=== PATIENT | female | born 1965 | race Caucasian/White ===

== ENCOUNTER → 2018-01-12 | Outpatient (CLI) | payer BC ==
[~2018-01-12] MED LIST: ASPIR 8181 M1 PO; ATORVASTATIN CA40 MG PO; CARTIA XT120 M1 PO; CEFPODOXIME PR200 M1 PO; CIPROFLOXACIN500 M1 PO; DILTIAZEM 24HR120 M1 PO; EFFIENT10 MG PO; FLAGYL500 MG PO; LANOXIN 0.120.125 M1 PO; NITROGLYCERIN0.4 MG SUBLING; NOHOMEMEDICATIONS; NORCO 5-325 TA1 EACH PO; PACERONE 200 M200 M1 PO; PREDNISONE10 MG PO; PROAIR HFA8.5 GM INH; TOPROL XL50 MG PO; VICODIN 5-5001 EACH PO
--- NOTE | 2018-01-19 11:16 | PF ---
[facility] [address] [place] [address] PULMONARY FUNCTION REPORT Name: PRAVEENAHARRY Melissa Room: [facility]#: [id number] Admission: 01/12/18 Attend Phys: Hermelindo Ross MD, F Discharge: Date of : 65 Report #: [id number] THIS REPORT FOR: //name// CC: Hermelindo Mcclellan [facility] REFERRING PHYSICIAN: Hermelindo Ross M.D., [facility]. SPIROMETRY: The FEV1/FVC ratio was 64% predicted. The FEV1 was 2.31 liters, at 90% predicted. The forced vital capacity was 3.63 liters, at 112% predicted. Total lung capacity was 117% predicted. The residual volume was 84% predicted. DLCO was 52% predicted. IMPRESSION: The above pulmonary function test demonstrates evidence of mild obstructive pulmonary defect with mild decrease in DLCO . <ELECTRONICALLY SIGNED> By: Pauly Elizabeth MD 01/19/18 1116 1146 [id number] Elizabeth MD /nt
== END ==
LOC: M.PUL 11:00
DX: I48.0 Paroxysmal atrial fibrillation (principal); Z72.0 Tobacco use

== ENCOUNTER 2019-11-24 23:27 | Inpatient (IN) | payer BC ==
[~2019-11-24] VITALS: Ht 157.5 cm; Wt 103.0 kg
[~2019-11-24 23:27] MED LIST changes: -ATORVASTATIN CA40 MG PO; +LIPITOR 40 MG T40 M1 PO
[2019-11-24 23:35] VITALS: BP 130/77
[2019-11-25] VITALS (13 sets, daily range): BP systolic 83–121; BP diastolic 54–70
[2019-11-25 00:23] LABS: ABSOLUTE BASOPHILS 0.1 thou/uL (0.0-0.2); ABSOLUTE EOSINOPHILS 0.2 thou/uL (0.0-0.7); ABSOLUTE LYMPHOCYTES 2.8 thou/uL (0.8-5.3); ABSOLUTE MONOCYTES 0.9 thou/uL (0.0-1.2); ABSOLUTE NEUTROPHILS 12.3 thou/uL (1.6-8.1); BASOPHILS 0.5 %; EOSINOPHILS 1.2 %; HEMATOCRIT 29.5 % (37.0-47.0); HEMOGLOBIN 9.7 gm/dL (12.0-15.0); LYMPHOCYTES 17.4 %; MCH 26.4 pg (26.0-34.0); MCHC 32.9 g/dL (28.0-37.0); MCV 80.2 fL (80.0-100.0); MONOCYTES 5.3 %; MPV 8.4 fl. (7.2-11.1); NUCLEATED RBCS 0 /100WBC; PLATELET COUNT* 350 thou/uL (150-400); POLYS 75.6 %; RBC 3.68 mil/uL (4.20-5.00); WBC 16.2 thou/uL (4.0-11.0)
[2019-11-25 00:30] LABS: CALCIUM 8.3 mg/dL (8.5-10.1); CREATININE 1.3 mg/dL (0.6-1.3); POTASSIUM 3.7 mmol/L (3.5-5.1)
[2019-11-25 00:33] LABS: INR 1.2; PROTIME 12.6 Seconds (9.20-11.50)
[2019-11-25 00:34] LABS: ALBUMIN 3.5 g/dL (3.4-5.0); MAGNESIUM 1.8 mg/dL (1.8-2.4); TOTAL BILIRUBIN 0.6 mg/dL (<0.1-1.0); TOTAL PROTEIN 6.9 g/dL (6.4-8.2)
[2019-11-25 01:08] LABS: INFLUENZA A ANTIGEN Negative (Negative); INFLUENZA B ANTIGEN Negative (Negative)
[2019-11-25 08:21] LABS: URINE BILIRUBIN NEGATIVE (Negative); URINE BLOOD TRACE (Negative); URINE CLARITY CLEAR; URINE COLOR YELLOW; URINE GLUCOSE-RANDOM NEGATIVE (Negative); URINE KETONES NEGATIVE (Negative); URINE LEUKOCYTES-REFLEX NEGATIVE (Negative); URINE PROTEIN NEGATIVE (Negative); URINE UROBILINOGEN 0.2 E.U./dl (0.2-1.0)
[2019-11-25 08:25] LABS: URINE NITRITE-REFLEX POSITIVE (Negative)
[2019-11-25 09:03] LABS: CASTS None Seen /LPF (None Seen); MUCUS None Seen strn/LPF (None Seen); SQUAMOUS 0-3 Few /LPF (0-3); URINE RBC 0-2 Rare /HPF (0-2); URINE WBC-REFLEX 0-5 Rare /HPF (0-5)
[2019-11-25 09:04] LABS: CRYSTALS None Seen /LPF (None Seen)
[2019-11-25] MEDS ORDERED: XARELTO20 MG PO (18:25)
[2019-11-25] MEDS ORDERED: AMIODARONE HCL400 MG PO (18:25)
[2019-11-25] MEDS ORDERED: COZAAR 25 MG TA25 M1 PO (18:26)
[2019-11-25] MEDS ORDERED: LEVO-T100 MCG PO (18:26)
--- NOTE | 2019-11-25 18:59 | NUR ---
1500 PATIENT ARRIVED TO ROOM 204 VIA BED FROM ER, REPORT REC'D FROM OBED/RN. PT IN RESP DISTRESS AND RESP AT BEDSIDE ADMINISTERING DUONEB BREATHING TX. AFIB IN 100-130'S, RESP 24-28, WHEEZES AND RALES NOTED BILATERALLY. ON CARDIZEM GTT AT 5MG HOUR WITH BP RUNNING 90-100 OVER 50-60. RT APPLIED BIPAP AFTER BREATHING TREATMENT AND PT RESTING QUIETLY.
[2019-11-26] VITALS (8 sets, daily range): BP systolic 105–117; BP diastolic 46–84
--- NOTE | 2019-11-26 04:26 | NUR ---
PT ALERT ORIENTED. ON 100% NRB. PT REQUESTED TO BE ON NRB AND NOT BIPAP. PT WENT BACK ON BIPAP AT 0300 O2 SAT PRIOR 90% SETTINGS FIO2 45% 10/5 RR 14 O2 SAT 93% TELEMETRY INITALLY SHOWED AFIB. ON CARDIZEM QTT AT 5MG/HR. PT CONVERTED TO SR AT 0028 RATE 70S. PT CONTINUES IN SR. WCTM
[2019-11-26 05:15] LABS: HEMATOCRIT 29.2 % (37.0-47.0); HEMOGLOBIN 9.3 gm/dL (12.0-15.0); MCH 25.8 pg (26.0-34.0); MCHC 31.7 g/dL (28.0-37.0); MCV 81.3 fL (80.0-100.0); MPV 8.8 fl. (7.2-11.1); NUCLEATED RBCS 0 /100WBC; PLATELET COUNT* 327 thou/uL (150-400); RBC 3.59 mil/uL (4.20-5.00); RDW-CV 18.7 % (10.5-14.5); WBC 19.6 thou/uL (4.0-11.0)
[2019-11-26 05:22] LABS: CALCIUM 7.7 mg/dL (8.5-10.1); CREATININE 1.2 mg/dL (0.6-1.3); POTASSIUM 4.2 mmol/L (3.5-5.1)
[2019-11-26 06:39] LABS: ABSOLUTE LYMPHOCYTES 1.4 thou/uL (0.8-5.3); ABSOLUTE MONOCYTES 0.2 thou/uL (0.0-1.2)
[2019-11-26 06:40] LABS: MICROCYTES 3+; PLATELET ESTIMATE ADEQUATE
[2019-11-26 06:41] LABS: HYPOCHROMASIA 2+
[2019-11-26 06:42] LABS: BURR CELLS 1+
--- NOTE | 2019-11-26 06:55 | NUR ---
PT CONTINUES ON BIPAP.
--- NOTE | 2019-11-26 08:30 | NUR ---
ASSUMED CARE OF PT AT 0730. PT RESTING IN BED ON BIPAP-SAT UPPER 90'S. PT PLACED ON 5L NC FOR BREAKFAST- RESPIRATORY RATE NOTED TO BE IN THE 30'S- PT PLACED BACK ON BIPAP. TOLERATING WELL. TRACING SR ON THE AIRPORT ATTENDANT. DR RAMIREZ HERE TO SEE PT- AMIO INCREASED TO 400MG PO BID. REFER TO EMAR. A&0X4, DENIES ANY PAIN AT THIS TIME. PT UP WITH SBA TO BATHROOM. PT GOAL FOR TODAY IS REMAIN IN SINUS RHYTHM AND TITRATE OXYGEN. PULMONARY AND CARDIOLOGY CONSULT IN PLACE. AM ASSESSMENT CHARTED. MEDICATIONS PER DEC. PT REPOSITIONS SELF. HOURLY ROUNDING OBSERVED. BED IN LOW POSITION. CALL LIGHT WITHIN REACH. WILL CONTINUE PLAN OF CARE.
--- NOTE | 2019-11-26 13:19 | CON ---
[address] [address] CONSULTATION Name: PRAVEENA,HARRY Melissa Room: [address] IN .R.#: [id number] Admission: 11/25/19 Attend Phys: Gonzales Conrad Discharge: Date of : 65 Report #: [id number] THIS REPORT FOR: //name// cc: Omero Carreon MD, Jason MD ~ THIS REPORT FOR: //name// CC: Oemro Dooley DATE OF SERVICE: 11/25/2019 CARDIOLOGY CONSULTATION HISTORY OF PRESENT ILLNESS: The patient is a 54-year-old single white female who came to the Emergency Room complaining of shortness of breath. The patient has an extensive past medical history. She has been a long time smoker. She actually presented back in 2014 with chest pain. I performed a cardiac catheterization. The right coronary artery was chronically occluded. The diagonal branch had a 90% stenosis. I performed angioplasty of the diagonal artery and she had a retrograde dissection into the LAD. She had occlusion of the LAD and developed ventricular fibrillation. She was cardioverted. I then stented the LAD. I was unable to place a wire through the stent in the diagonal branch which was occluded. There was no significant disease in the circumflex or right coronary artery. Her last echocardiogram showed an ejection fraction of 45%. Nuclear stress test in 2017 showed evidence of previous anterior infarction with minimal periinfarct ischemia, ejection fraction 44%. She was last seen by me in the Cardiology Clinic a year ago. She saw my nurse practitioner last summer. During her stenting, she had an episode of atrial fibrillation and was placed on amiodarone and Xarelto. Unfortunately, recently she continues to smoke. She does have inhaler, which she uses occasionally. She recently has had increasing shortness of breath and some edema. She denied any palpitations, chest pain, syncope or bleeding. She came to the Emergency Room today and was noted to be in atrial fibrillation. Cardiology consultation was requested. PAST MEDICAL HISTORY: Otherwise is significant for previous carpal tunnel surgery, foot surgery, hysterectomy and tonsillectomy. She has a history of hypertension, hyperlipidemia. MEDICATIONS: Include amiodarone, Lipitor, Synthroid, losartan, metoprolol, Xarelto. She does not take aspirin at this time. ALLERGIES: She [place] [address] CONSULTATION Name: HARRY GRISSOM Room: [address]#: [id number] Admission: 11/25/19 Attend Phys: Gonzales Conrad Discharge: Date of : 65 Report #: [id number] FAMILY HISTORY: Actually, negative for heart disease. SOCIAL HISTORY: She is single, lives with her mother in [place], [place]. She does data entry coordinator at work. Smokes half pack of cigarettes. No alcohol abuse. REVIEW OF SYSTEMS: She has no history of stroke. She has COPD. No history of liver disease, kidney disease, cancer, psychiatric illness or chronic skin condition. PHYSICAL EXAMINATION: GENERAL: Revealed a middle-aged female, appeared in mild respiratory distress. VITAL SIGNS: Her blood pressure 110/70, pulse is 100 and irregular. She is afebrile. HEENT: She was anicteric. Conjunctivae pink. Mucous membranes moist. NECK: Veins do not appear distended. No carotid bruits. CHEST: Revealed expiratory wheezes. CARDIOVASCULAR: Irregular rhythm. ABDOMEN: Obese. EXTREMITIES: Had trace edema. Dorsalis pedis pulse 2+ bilaterally. SKIN: Warm and dry. NEUROLOGIC: Nonfocal. RADIOLOGICAL DATA: Her ECG on admission showed atrial fibrillation, rapid ventricular response rate, no significant ST or T-wave change. Her echocardiogram was done last April that showed ejection fraction of 50% with mild mitral regurgitation. Her vascular screening was done last April that showed minimal carotid plaque, normal ABIs. Abdominal ultrasound was not performed. Her x-rays last night in the Emergency Room showed diffuse infiltrates. LABORATORY DATA: Sodium 136, creatinine 1.3. Liver function studies were normal. BNP 2272. Troponin 0.06. She had TSH last summer that was 3.3. Her white blood cell count was 16.2, hemoglobin 9.7, hematocrit 29.5. IMPRESSION AND RECOMMENDATIONS: 1. Coronary artery disease. Previous stent. No recent angina. Since the patient is on Xarelto, I would not recommend aspirin at this time. 2. Cardiomyopathy. The patient on a beta marlo and ARB. 3. Hyperlipidemia. The patient is on a statin drug. 4. Hypertension. The patient is on a beta marlo and ARB. 5. Atrial fibrillation. I would increase amiodarone and continue Xarelto. The patient may require repeat cardioversion. 6. Tobacco abuse. [address] [address] CONSULTATION Name: HARRY GRISSOM Room: [address] IN [place]ish[place]arya.#: [id number] Admission: 11/25/19 Attend Phys: Gonzales Conrad Discharge: Date of : 65 Report #: [id number] 7. History of small abdominal aortic aneurysm. 8. Anemia. No history of bleeding. <ELECTRONICALLY SIGNED> By: Hermelindo Ross MD, FACC 11/26/19 1319 1006 1131Dgigi Ross MD, FACC /nt
[2019-11-27] VITALS: BP 118/52
--- NOTE | 2019-11-27 02:46 | NUR ---
PT ALERT ORIENTED. UP TO BR WITH STD BY ASSIST. ON 5 LITERS NC THEN BIPAP AT HS. PT TOLERATING WELL. DENIES PAIN. TELEMETRY SHOWS AFIB.
[2019-11-27 03:59] VITALS: BP 130/72
[2019-11-27 04:55] LABS: CHOLESTEROL 122 mg/dL (<200); HDL CHOLESTEROL 41 mg/dL (>40); LDL CHOLESTEROL 71 mg/dL (<100); TRIGLYCERIDE 51 mg/dL (<150); VLDL 10 mg/dL (<40)
[2019-11-27 05:40] LABS: SERUM ASSESSMENT CLEAR
[2019-11-27 07:47] VITALS: BP 112/67
--- NOTE | 2019-11-27 09:46 | NUR ---
ASSUMED CARE OF PT AT 0730. PT RESTING IN BED. PT STATES SHE FEELS MUCH BETTER TODAY. A&0X4, DENIES ANY PAIN AT THIS TIME. COMPLAINS OF SHORTNESS OF BREATH WITH EXERTION. TRACING AFIB ON THE QUICK SERVICE TECHNICIAN. RATE IN THE 80'S-90'S. ON 5L NC SAT 96%. DR RAMIREZ HERE TO SEE PT THIS AM- ORDERS RECEIVED FOR AMIO BOLUS, CARDIZEM INCREASED TO 60MG PO Q6H, EKG IN AM AND ECHO IN AM. PT UP SBA TO BATHROOM. PULMONARY CONSULT IN PLACE. PT GOAL FOR TODAY IS INCREASE ACTIVITY-AMBULATE IN HALLWAY, CONVERT TO SINUS RHYTHM AND TITRATE OXYGEN. AM ASSESSMENT CHARTED. MEDICATIONS PER DEC. PT REPOSITIONS SELF. HOURLY ROUNDING OBSERVED. BED IN LOW POSITION. CALL LIGHT WITHIN REACH. WILL CONTINUE PLAN OF CARE.
[2019-11-27 11:15] VITALS: BP 118/70
[2019-11-27 16:01] VITALS: BP 107/64
--- NOTE | 2019-11-27 17:02 | NUR ---
NO ACUTE CHANGES THROUGHOUT SHIFT. REFER TO CHARTING. PT PROGRESSING TOWARDS GOALS. REMAINED OFF BIPAP THROUGHOUT SHIFT. REMAINED ON 5L NC SAT UPPER 90'S. PT AMBULATED TO BATHROOM AND IN ROOM WITH NO DIFFICULTIES. CONTINUES TO TRACE AFIB ON THE VICE PRESIDENT DIVERSITY. RATE CURRENTLY IN THE 80'S-90'S. SPUTUM SAMPLE NEEDS TO BE OBTAINED. PT HAD REPEAT CXR TODAY. REFER TO RESULTS. PT DENIES ANY PAIN OR SHORTNESS OF BREATH THIS AFTERNOON. MEDICATIONS PER DEC. PT REPOSITIONS SELF. HOURLY ROUNDING OBSERVED. BED IN LOW POSITION. CALL LIGHT WITHIN REACH. WILL CONTINUE PLAN OF CARE.
[2019-11-27 20:00] VITALS: BP 106/60
[2019-11-28 00:53] VITALS: BP 118/62
[2019-11-28 04:16] VITALS: BP 126/74
--- NOTE | 2019-11-28 05:18 | NUR ---
PT CARE ASSUMED AT 1930. SAT MAINTAINED IN BIPAP. ALERT AND ORIENTED X4. DENIES PAIN AND SOB. CALL LIGHT WITHIN REACH AND BED IN LOW POSITION. HOURLY ROUNDING DONE FOR PT SAFETY.
[2019-11-28 05:57] LABS: ABSOLUTE LYMPHOCYTES 1.1 thou/uL (0.8-5.3); ABSOLUTE MONOCYTES 0.6 thou/uL (0.0-1.2); HEMATOCRIT 28.5 % (37.0-47.0); HEMOGLOBIN 9.2 gm/dL (12.0-15.0); LYMPHOCYTES 5.5 %; MCH 25.8 pg (26.0-34.0); MCHC 32.1 g/dL (28.0-37.0); MCV 80.4 fL (80.0-100.0); MONOCYTES 2.7 %; MPV 8.8 fl. (7.2-11.1); NUCLEATED RBCS 0 /100WBC; PLATELET COUNT* 339 thou/uL (150-400); POLYS 91.8 %; RBC 3.54 mil/uL (4.20-5.00); RDW-CV 18.6 % (10.5-14.5); WBC 20.7 thou/uL (4.0-11.0)
[2019-11-28 06:10] LABS: ALBUMIN 2.9 g/dL (3.4-5.0); CREATININE 1.1 mg/dL (0.6-1.3); POTASSIUM 3.8 mmol/L (3.5-5.1); TOTAL BILIRUBIN 0.5 mg/dL (<0.1-1.0); TOTAL PROTEIN 6.1 g/dL (6.4-8.2)
[2019-11-28 08:30] VITALS: BP 117/65
[2019-11-28 11:00] VITALS: BP 106/57
--- NOTE | 2019-11-28 12:39 | NUR ---
Pt is A&O. Resides at home with her mom and brother. Independent and active. No DME, Pt is hopeful that she will not need O2 at dc. No hx of HH or SNF. Goal is home at dc. Spoke with Dr aprker dc to home in 1-2 days. Following.
--- NOTE | 2019-11-28 13:00 | 2DMMODE ---
[place] [address] 2 D/M-MODE ECHOCARDIOGRAM Name: HARRY GRISSOM Room: [address] IN [facility]#: [id number] Admission: 11/25/19 Attend Phys: Stanford Dooley Discharge: Date of : 65 Date of Service: 11/28/19 1259 Report #: [id number] THIS REPORT FOR: cc: Omero Carreon MD, Jason MD Holkins,Octaviano Woodson MD [facility] ~ APPROVED REPORT Study performed: 11/28/2019 09:55:53 EXAM: Comprehensive 2D, Doppler, and color-flow Echocardiogram Patient Location: In-Patient Room #: [facility] Status: routine BSA: 2.00 HR: 83 bpm BP: 117/65 mmHg Rhythm: NSR Other Information Study Quality: Good Indications COPD Dyspnea 2D Dimensions IVSd: 10.40 (7-11mm) LVOT Diam: 20.25 (18-24mm) LVDd: 59.74 mm PWd: 10.20 (7-11mm) Ascending Ao: 33.84 (22-36mm) LVDs: 38.38 (25-40mm) Aortic Root: 34.24 mm Volumes Left Atrial Volume (Systole) LA ESV Index: 43.80 mL/m2 Aortic Valve AoV Peak Amando.: 1.75 m/s AO Peak Gr.: 12.18 mmHg LVOT Max P.10 mmHg AO Mean Gr.: 6.15 mmHg LVOT Mean P.44 mmHg LVOT Max V: 1.33 m/s AO V2 VTI: 29.06 cm LVOT Mean V: 0.85 m/s MAR (VTI): 2.95 cm2 LVOT V1 VTI: 26.59 [place] [address] 2 D/M-MODE ECHOCARDIOGRAM Name: HARRY GRISSOM Room: [address] IN [facility]#: [id number] Admission: 11/25/19 Attend Phys: Stanford Dooley Discharge: Date of : 65 Date of Service: 11/28/19 1259 Report #: [id number] Mitral Valve MV Decel. Time: 259.10 ms MV PHT: 75.14 ms MVA (PHT): 2.93 cm2 TDI Medial E' Amando.: 0.15 m/s Lateral E' Amando.: 0.16 m/s Pulmonary Valve PV Peak Amando.: 1.08 m/s PV Peak Gr.: 4.68 mmHg Tricuspid Valve RAP Estimate: 5.00 mmHg TR Peak Gr.: 41.90 mmHg RVSP: 46.00 mmHg PA Pressure: 46.00 mmHg Left Ventricle The left ventricle is normal size. There is normal LV segmental wall motion. There is normal left ventricular wall thickness. Left ventricular systolic function is normal. The left ventricular ejection fraction is within the normal range. LVEF is 55-60%. This study is not technically sufficient to allow evaluation of the LV diastolic function due to atrial fibrillation. Right Ventricle The right ventricle is normal size. The right ventricular systolic function is normal. Atria Left atrium is moderately dilated. The right atrium size is normal. Aortic Valve The aortic valve is normal in structure. No aortic regurgitation is present. There is no aortic valvular stenosis. Mitral Valve The mitral valve is normal in structure. Moderate mitral regurgitation. No evidence of mitral valve stenosis. Tricuspid Valve The tricuspid valve is normal in structure. Mild tricuspid regurgitation. Moderate [place] [address] 2 D/M-MODE ECHOCARDIOGRAM Name: PRAVEENAHARRY L Room: [address] IN [facility]#: [id number] Admission: 11/25/19 Attend Phys: Stanford Dooley Discharge: Date of : 65 Date of Service: 11/28/19 1259 Report #: [id number] Pulmonic Valve The pulmonary valve is normal in structure. Trace pulmonic regurgitation. Great Vessels The aortic root is normal in size. IVC is normal in size and collapses >50% with inspiration. Pericardium There is no pericardial effusion. <Conclusion> The left ventricle is normal size. There is normal left ventricular wall thickness. Left ventricular systolic function is normal. The left ventricular ejection fraction is within the normal range. LVEF is 55-60%. This study is not technically sufficient to allow evaluation of the LV diastolic function due to atrial fibrillation. The right ventricle is normal size. Left atrium is moderately dilated. The right atrium size is normal. The aortic valve is normal in structure. The mitral valve is normal in structure. Moderate mitral regurgitation. No evidence of mitral valve stenosis. The tricuspid valve is normal in structure. Mild tricuspid regurgitation. Moderate pulmonary hypertension. IVC is normal in size and collapses >50% with inspiration. There is no pericardial effusion. There is normal LV segmental wall motion. <ELECTRONICALLY SIGNED> By: Octaviano Miguel MD, FACC 11/28/19 1259 1259 1259 Octaviano Miguel MD, FACC /INF
--- NOTE | 2019-11-28 14:29 | NUR ---
Nutrition: Pt admitted with COPD exac. Seen for high BMI. H/o COPD, DM, smoking, bipap. 2gm Na diet. Wt stable, 227#. Albumin 2.9. Pt was busy with RN and family at time of attempted visit today. Hopeful for good po intake, tight BG control. Otherwise, low nutrition risk.
[2019-11-28 16:09] VITALS: BP 113/45
--- NOTE | 2019-11-28 16:38 | NUR ---
ALERT AND ORIENTED X4. UP AD SHANNON IN ROOM WITH O2 AT 5L/NC AT ALL TIMES TO KEEP O2 SATS IN 90'S. CONTINUES TO RECEIVE IV ANTIBIODICS WITHOUT DIFFICULTY OR SIDE EFFECTS. CONTINUES TO RECEIVE SOLUMEDROL AND BREATHING TREATMENTS. REMAINS ON HEART MONITOR IN A-FIB. NO C/O ANY PAIN. USES CALL LIGHT NEEDED.
[2019-11-28 20:00] VITALS: BP 110/61
[2019-11-29 00:42] VITALS: BP 107/77
[2019-11-29 04:45] VITALS: BP 120/73
--- NOTE | 2019-11-29 07:38 | NUR ---
PT CARE ASSUMED AT 1930. SAT MAINTAINED IN BIPAP AND O2. C/O PAIN, MEDICATION GIVEN PER EMAR. CALL LIGHT WITHIN REACH AND BED IN LOW POSITION. ALERT AND ORIENTED X4. HOURLY ROUNDING DONE FOR PT SAFETY.
[2019-11-29 09:15] VITALS: BP 114/60
[2019-11-29 13:02] VITALS: BP 118/61
--- NOTE | 2019-11-29 13:43 | NUR ---
CHF Discharge Medication Education: Patient was provided a medication education handout. The only medication at this time patient is taking is metoprolol. Discussed how to take, side effects, and how it works. All questions and concerns were addressed.
--- NOTE | 2019-11-29 16:20 | NUR ---
I have reviewed the documentation by COREY SANTIAGO from 11/29/19 to 11/29/19 and I concur with it. MATHEW ESTES
[2019-11-29 16:25] VITALS: BP 107/54
--- NOTE | 2019-11-29 18:17 | NUR ---
I ASSUMED CARE OF THE PATIENT AT 0700. SHE IS ALERT AND ORIENTED X4 AND IS UP AD SHANNON. SHE IS A.FIB ON THE MONITOR, BUT ASYMPTOMATIC. BED IS IN THE LOW LOCKED POSITION AND CALL LIGHT IS IN REACH. HOURLY ROUNDING IS COMPLETE AND PTIENT NEEDS ARE MET. PAIN IS DENIED. SHE WAS A SMOKER ON ARRIVAL, BUT STATES SHE DOESN'T WANT A NICOTINE PATCH. OXYGEN IS BEING TITRATED DOWN TOLERATED. SPUTUM WAS COLLECTED AND SENT TO LAB. SHE IS PROGRESSING TOWARD HER GOALS. I HAD STUDENT, JORI, AND AGREE WITH HIS CHARTED ASSESSMENT. WILL CONTINUE TO MONITOR.
[2019-11-29 20:00] VITALS: BP 112/64
[2019-11-30 00:44] VITALS: BP 134/67
[2019-11-30 04:26] VITALS: BP 133/81
[2019-11-30 04:41] LABS: HEMATOCRIT 30.2 % (37.0-47.0); HEMOGLOBIN 9.8 gm/dL (12.0-15.0); MCH 25.8 pg (26.0-34.0); MCHC 32.4 g/dL (28.0-37.0); MCV 79.6 fL (80.0-100.0); MPV 8.3 fl. (7.2-11.1); NUCLEATED RBCS 0 /100WBC; PLATELET COUNT* 375 thou/uL (150-400); RBC 3.79 mil/uL (4.20-5.00); RDW-CV 18.5 % (10.5-14.5); WBC 22.1 thou/uL (4.0-11.0)
--- NOTE | 2019-11-30 04:55 | NUR ---
PT CARE ASSUMED AT 1930. SAT MAINTAINED IN O2 AND BIPAP. DENIES PAIN AND SOB. ALERT AND ORIENTED X4. CALL LIGHT WITHIN REACH AND BED IN LOW POSITION. HOURLY ROUNDING DONE FOR PT SAFETY.
[2019-11-30 05:12] LABS: CALCIUM 7.7 mg/dL (8.5-10.1); CREATININE 1.2 mg/dL (0.6-1.3); POTASSIUM 3.6 mmol/L (3.5-5.1)
[2019-11-30 05:43] LABS: HEMATOCRIT 30.5 % (37.0-47.0); HEMOGLOBIN 9.8 gm/dL (12.0-15.0); MCH 25.7 pg (26.0-34.0); MCHC 32.2 g/dL (28.0-37.0); MCV 79.6 fL (80.0-100.0); MPV 8.5 fl. (7.2-11.1); RBC 3.83 mil/uL (4.20-5.00); RDW-CV 18.5 % (10.5-14.5)
[2019-11-30 07:17] LABS: ABSOLUTE LYMPHOCYTES 2.4 thou/uL (0.8-5.3); ABSOLUTE MONOCYTES 0.2 thou/uL (0.0-1.2); ABSOLUTE NEUTROPHILS 19.4 thou/uL (1.6-8.1); ANISOCYTOSIS 1+; PLATELET ESTIMATE ADEQUATE
--- NOTE | 2019-11-30 08:00 | NUR ---
AM ASSESSEMENT COMPLETE, DEFER TO COMPUTER CHARTING. CHIEF PAYROLL CLERK TRACKING AFIB. 02 ON 4L PER NC, LUNGS DIMINISHED WITH CRACKLES - SOA NOTED WITH ACTIVITY. 2+ EDEMA NOTED IN BILATERAL LOWER EXTREMITIES. DENIES PAIN, DIZZINESS AT THIS TIME. UP IN CHAIR, CALL LIGHT WITHIN REACH. FLOOR WORKER TRANSFER BAY ALSO INVOLVED WITH PATIENT CARE. WILL CONTINUE TO MONITOR.
[2019-11-30 09:35] VITALS: BP 109/64
--- NOTE | 2019-11-30 10:43 | NUR ---
Anticipate dc soon, Pt hopeful that she will not need home o2, continues to require 4L at this time.
[2019-11-30 11:10] VITALS: BP 109/56
--- NOTE | 2019-11-30 13:44 | EKG ---
[place] [address] ELECTROCARDIOGRAM REPORT Name: HARRY GRISSOM Room: [address] ADM IN .R.#: [id number] Admission: 11/25/19 Attend Phys: Stanford Dooley Discharge: Date of : 65 Date of Service: 11/26/19 1041 Report #: [id number] THIS REPORT FOR: cc: Omero Carreon MD, Jason MD Holkins,Octaviano Woodson MD [facility] ~ THIS REPORT FOR: //name// [facility] Test Date: 2019-11-26 Test Time: 10:41:56 Pat Name: HARRY GRISSOM Department: Room: [address] Gender: F Pipe Smoking Machine Operator: CHAVA : 1965 Requested By: Hermelindo Ross Order Number: [id number] Jarvis MD: Octaviano Miguel Measurements Intervals [place] Rate: 115 P: [place]: QRS: 50 QRSD: 98 T: 48 QT: 355 QTc: 491 Interpretive Statements Atrial fibrillation Borderline prolonged QT interval Compared to ECG 11/24/2019 23:42:52 T-wave abnormality no longer present ST (T wave) deviation no longer present Electronically Signed On 11-28-2019 15:57:35 STRIP MILL OPERATOR by Octaviano Miguel [email or web address] <ELECTRONICALLY SIGNED> By: Octaviano Miguel MD, [facility] 11/28/19 1557 1041 1041 Octaviano Miguel MD, [facility] /EPI
--- NOTE | 2019-11-30 13:45 | EKG ---
[place] [address] ELECTROCARDIOGRAM REPORT Name: HARRY GRISSOM Room: [address] ADM IN M.R.#: [id number] Admission: 11/25/19 Attend Phys: Stanford Dooley Discharge: Date of : 65 Date of Service: 11/28/19 0943 Report #: [id number] THIS REPORT FOR: cc: Omero Carreon MD, Jason MD Holkins,Octaviano Woodson MD [facility] ~ THIS REPORT FOR: //name// [facility] Test Date: 2019-11-28 Test Time: 09:43:48 Pat Name: HARRY GRISSOM Department: Room: [address] Gender: F Tennis Net Maker: : 1965 Requested By: Hermelindo Ross Order Number: [id number] Jarvis MD: Octaviano Miguel Measurements Intervals [place] Rate: 74 P: [place]: QRS: 37 QRSD: 102 T: 17 QT: 443 QTc: 492 Interpretive Statements Atrial fibrillation Borderline prolonged QT interval Compared to ECG 11/24/2019 23:42:52 T-wave abnormality no longer present ST (T wave) deviation no longer present Electronically Signed On 11-28-2019 16:13:32 LEAD SHOP OPERATOR by Octaviano Miguel [email or web address] <ELECTRONICALLY SIGNED> By: Octaviano Miguel MD, [facility] 11/28/19 1613 0943 Octaviano Miguel MD, [facility] /EPI
--- NOTE | 2019-11-30 13:55 | EKG ---
[place] [address] ELECTROCARDIOGRAM REPORT Name: HARRY GRISSOM Room: [address] ADM IN [facility]#: [id number] Admission: 11/25/19 Attend Phys: Stanford Dooley Discharge: Date of : 65 Date of Service: 11/24/19 2342 Report #: [id number] THIS REPORT FOR: cc: Omero Carreon MD, Jason MD Blick,Hermelindo Olea MD [facility] ~ THIS REPORT FOR: //name// [facility] ED Test Date: 2019-11-24 Test Time: 23:42:52 Pat Name: HARRY GRISSOM Department: Room: [place] [address] Gender: F Senior Informatica Developer: : 1965 Requested By: Sharon Mantilla Order Number: [id number] Reading MD: Hermelindo Ross Measurements Intervals [place] Rate: 114 P: [place]: QRS: 39 QRSD: 106 T: 66 QT: 367 QTc: 506 Interpretive Statements Atrial fibrillation Abnormal R-wave progression, late transition Nonspecific T abnormalities, lateral leads ST elev, probable normal early repol pattern Baseline wander in lead(s) I,III,aVL,V5 Compared to ECG 07/10/2015 15:06:25 Sinus rhythm no longer present Electronically Signed On 11-25-2019 10:44:15 RAILROAD SIGNAL AND SWITCH OPERATOR by Hermelindo Ross [email or web address] <ELECTRONICALLY SIGNED> By: Hermelindo Ross MD, [facility] 11/25/19 1044 2342 2342 Hermelindo Ross MD, [facility] /EPI
--- NOTE | 2019-11-30 17:04 | NUR ---
CHANNEL REBUILDER TRACKING AFIB. UP IN CHAIR MOST OF AM AND LATER IN AFTERNOON FOR SHORT PERIOD. CONTINUES TO BE SOA WITH ACITVITY, EDMEA IN LOWER EXTREMITIES. 02 ON 4L PER NC, HOB ELEVATED. CALL LIGHT WITHIN REACH. NO COMPLAINTS OF PAIN TO NURSING DURING SHIFT. WILL CONTINUE WITH PLAN OF CARE.
[2019-11-30 17:09] VITALS: BP 111/55
[2019-11-30 20:00] VITALS: BP 120/62
[2019-12-01] VITALS: BP 101/71
[2019-12-01 04:25] VITALS: BP 113/81
--- NOTE | 2019-12-01 04:33 | NUR ---
PT. HAS DENIED NEEDS THROUGHOUT SHIFT, PT. EXPRESSED FRUSTRATION BEGINNING SHIFT ABOUT INCREASED NEED FOR SUPPLEMENTAL O2, IS FRUSTRATED THAT SHE HAS NOT GOTTEN BETTER AT THIS POINT. REASSURANCE GIVEN. BIPAP ON THROUGHOUT HS. CALL LIGHT IN REACH, WILL CONTINUE TO MONITOR.
[2019-12-01] MEDS ORDERED: PREDNISONE 10 M10 MG PO (07:37)
[2019-12-01] MEDS ORDERED: PACERONE 200 M200 M1 PO (07:37)
[2019-12-01] MEDS ORDERED: CARDIZEM CD240 M1 PO (07:37)
[2019-12-01] MEDS ORDERED: AUGMENTIN 875-1 EACH PO (07:37)
[2019-12-01] MEDS ORDERED: PROTONIX40 M1 PO (07:37)
[2019-12-01 08:30] VITALS: BP 112/58
[2019-12-01 10:08] LABS: ABSOLUTE LYMPHOCYTES 1.5 thou/uL (0.8-5.3); ABSOLUTE MONOCYTES 0.6 thou/uL (0.0-1.2); ABSOLUTE NEUTROPHILS 16.7 thou/uL (1.6-8.1); BASOPHILS 0.1 %; EOSINOPHILS 0.2 %; HEMOGLOBIN 9.1 gm/dL (12.0-15.0); LYMPHOCYTES 8.1 %; MCH 26.3 pg (26.0-34.0); MCHC 32.3 g/dL (28.0-37.0); MCV 81.2 fL (80.0-100.0); MONOCYTES 3.3 %; MPV 8.6 fl. (7.2-11.1); NUCLEATED RBCS 0 /100WBC; PLATELET COUNT* 323 thou/uL (150-400); POLYS 88.3 %; RBC 3.45 mil/uL (4.20-5.00); RDW-CV 18.6 % (10.5-14.5); WBC 18.8 thou/uL (4.0-11.0)
[2019-12-01 10:33] LABS: ALBUMIN 2.4 g/dL (3.4-5.0); CALCIUM 7.9 mg/dL (8.5-10.1); CREATININE 1.3 mg/dL (0.6-1.3); POTASSIUM 3.2 mmol/L (3.5-5.1); TOTAL BILIRUBIN 0.7 mg/dL (<0.1-1.0); TOTAL PROTEIN 5.5 g/dL (6.4-8.2)
[2019-12-01 12:00] VITALS: BP 126/73
[2019-12-01 16:00] VITALS: BP 109/57
[2019-12-01 19:45] VITALS: BP 114/76
[2019-12-02 00:33] VITALS: BP 114/65
[2019-12-02 04:28] VITALS: BP 122/69
[2019-12-02 05:20] LABS: ABSOLUTE LYMPHOCYTES 1.7 thou/uL (0.8-5.3); ABSOLUTE MONOCYTES 0.8 thou/uL (0.0-1.2); ABSOLUTE NEUTROPHILS 15.2 thou/uL (1.6-8.1); BASOPHILS 0.1 %; EOSINOPHILS 0.2 %; HEMATOCRIT 30.4 % (37.0-47.0); HEMOGLOBIN 9.9 gm/dL (12.0-15.0); LYMPHOCYTES 9.6 %; MCH 25.7 pg (26.0-34.0); MCHC 32.5 g/dL (28.0-37.0); MONOCYTES 4.4 %; MPV 8.7 fl. (7.2-11.1); NUCLEATED RBCS 0 /100WBC; PLATELET COUNT* 341 thou/uL (150-400); POLYS 85.7 %; RBC 3.85 mil/uL (4.20-5.00); RDW-CV 18.4 % (10.5-14.5); WBC 17.7 thou/uL (4.0-11.0)
[2019-12-02 05:31] LABS: ALBUMIN 2.3 g/dL (3.4-5.0); CALCIUM 7.9 mg/dL (8.5-10.1); CREATININE 1.1 mg/dL (0.6-1.3); POTASSIUM 3.6 mmol/L (3.5-5.1); TOTAL BILIRUBIN 0.9 mg/dL (<0.1-1.0); TOTAL PROTEIN 5.6 g/dL (6.4-8.2)
--- NOTE | 2019-12-02 05:41 | NUR ---
PT SLEPT MOST OF SHIFT. ASSESSMENT DOCUMENTED. MEDS GIVEN PER E-DEC. IV PATENT. O2 AT 6LNC. BIPAP WORN WHILE SLEEPING. NO REPORTS OF PAIN. WILL CONTINUE WITH PLAN OF CARE.
--- NOTE | 2019-12-02 07:37 | CON ---
[address] [address] CONSULTATION Name: PRAVEENAHARRY Melissa Room: [address] IN M.R.#: [id number] Admission: 11/25/19 Attend Phys: Gonzales Conrad Discharge: Date of : 65 Report #: [id number] THIS REPORT FOR: //name// cc: Omero Carreon MD, Jason MD ~ THIS REPORT FOR: //name// CC: Omero Dooley DATE OF SERVICE: 12/01/2019 INFECTIOUS DISEASE CONSULTATION ATTENDING PHYSICIAN: Stanford Dooley MD REASON FOR EVALUATION: Persistent pneumonitis in spite of broad-spectrum antimicrobial therapy directed towards community-acquired pneumonia. HISTORY OF PRESENT ILLNESS: Chart reviewed, the patient examined. This is a 54-year-old woman who on the day of admission in fact had abrupt onset of described as chest discomfort, shortness of breath. She has never had anything quite this similar despite of measures to relax. This persisted, in fact worsened. She presented to the Emergency Room. She was found to have saturations around 80%. She had initial chest x-ray, which showed mild diffuse interstitial infiltrates, these have persisted, in fact CT of the chest today due to lack of resolution showed extensive ground glass infiltrates throughout both lung ortega. There is no evidence of PE. She has not had any fevers. Denies any chills, shakes, sweats. Appetite has been initially diminished, has slightly improved. She has been on combination broad-spectrum therapy with ceftriaxone and doxycycline. At this point, she is still maintained on supplemental oxygen. She denies any particular risk factors on questioning. ALLERGIES: None. CURRENT MEDICATIONS: Include doxycycline, prednisone, diltiazem, amiodarone, atorvastatin, pantoprazole, budesonide, rivaroxaban, metoprolol, hydralazine, ipratropium and albuterol inhaler. Discontinue ceftriaxone. PAST MEDICAL HISTORY: Known history of atherosclerotic coronary artery disease, previous acute myocardial infarction, atrial fibrillation, hyperlipidemia, hypothyroidism, COPD. SOCIAL HISTORY: Smokes 1/2 pack a day, has been as high as 2 packs a day tobacco. No ethanol. [place] [address] CONSULTATION Name: HARRY GRISSOM Room: [address]#: [id number] Admission: 11/25/19 Attend Phys: Gonzales Conrad Discharge: Date of : 65 Report #: [id number] FAMILY HISTORY: Noncontributory. REVIEW OF SYSTEMS: Denies any significant gastrointestinal-related complaints. Weight has been relatively stable. PHYSICAL EXAMINATION: GENERAL: She is alert, cooperative. She is in bhfy-og-xyuprwfk distress. She is lucid. VITAL SIGNS: Temperature 98.1, pulse 91, respirations 19, blood pressure 126/73. SKIN: Warm, dry, no rashes. HEENT: Normocephalic. Extraocular muscles intact. Nasal cannula oxygen in place. NECK: Supple. LUNGS: Scattered coarse breath sounds. HEART: Irregular. I do not appreciate any murmur. ABDOMEN: Soft, nontender, nondistended. EXTREMITIES: No cyanosis. GENITOURINARY AND RECTAL: Deferred. LABORATORY DATA: Electrolytes: Sodium 140, potassium 3.2, chloride 105, bicarbonate is 26, anion gap of 9, BUN and creatinine 26 and 1.3. LFTs unremarkable. Albumin of 2.4, total protein 5.5. CBC: White count of 18.8, H and H 9.1 and 28.0, platelets of 323. ASSESSMENT: Diffuse pneumonitis. It will be multifactorial. It certainly raises question of infectious etiology given the acute onset classic picture for pneumococcus. We will adjust antimicrobial therapy to cover atypicals, would be concerned about other noninfectious causes, certainly as a sequelae may have developed kind of an ARDS picture also drug-induced interstitial pneumonitis, possibly due to amiodarone, although the acute onset would go against that. She is persistently leukocytotic, I think in part due to the corticosteroids that she is on exogenously to see how she does over the course of next 24-48 hours, try to wean off support as allowed. Consider decreasing the overall medical regimen. If it does not resolve might consider bronchoscopy for further evaluation. It is noted that she does smoke cigarettes, although does not vape. <ELECTRONICALLY SIGNED> By: Preet Lyman MD 12/02/19 0737 [id number] Lyman MD /nt
[2019-12-02 08:00] VITALS: BP 113/56
[2019-12-02 12:00] VITALS: BP 119/72
[2019-12-02 16:00] VITALS: BP 98/57
--- NOTE | 2019-12-02 16:00 | NUR ---
NEW ORDER RECEIVED FOR PHYSICAL THERAPY BY DR. REYNOLDS. PATIENT WAS EVALUATED AND DISCHARGED ON 12/01. CHECKED ON PATIENT AND THERE HAS BEEN NO REGRESSION OF STATUS. SPOKE WITH DR. REYNOLDS TO D/C PATIENT. DOCTOR CONCURRED.
[2019-12-02 19:30] VITALS: BP 108/55
--- NOTE | 2019-12-02 19:42 | NUR ---
PT HAS RESTED T/O DAY WITH C/O PAIN. O2 TITRATED DOWN TO 4L NC. AFIB ON MONITOR. VSS. IV LASIX GIVEN AFTER BNP LAB DRAW.CALL LIGHT IN REACH
--- NOTE | 2019-12-02 22:55 | NUR ---
INITAL ASSESMENT COMPLETED AT 1930. PT PLEASANT AND COOPERATIVE, DENIED PAIN OR DISCOMFORT. HS MEDS GIVEN PER EMAR. CALL LIGHT IN REACH, PT DEMONSTRATES PROPER USE.
[2019-12-03] VITALS (7 sets, daily range): BP systolic 102–127; BP diastolic 59–73
[2019-12-03 04:46] LABS: HEMATOCRIT 30.4 % (37.0-47.0); MCH 25.8 pg (26.0-34.0); MCV 78.1 fL (80.0-100.0); MPV 8.4 fl. (7.2-11.1); RBC 3.89 mil/uL (4.20-5.00); RDW-CV 18.4 % (10.5-14.5); WBC 14.8 thou/uL (4.0-11.0)
[2019-12-03 04:56] LABS: CALCIUM 8.1 mg/dL (8.5-10.1); CREATININE 1.1 mg/dL (0.6-1.3); POTASSIUM 3.5 mmol/L (3.5-5.1)
--- NOTE | 2019-12-03 19:09 | NUR ---
PTINET RESTING IN BED. UP AD SHANNON IN ROOM. 4L PER NASAAL NANCY. AOX4. HOURLY ROUDNIG COMPLETED FOR PATIENT SAFETY
[2019-12-04 04:49] VITALS: BP 130/71
--- NOTE | 2019-12-04 05:41 | NUR ---
ASSUMED CARE OF PT AFTER REPORT AT 1930. PT A&OX4. VSS. PHYSICAL ASSESSMENT COMPLETED AND CHARTED. PT ON O2 AT 2L NC. PT TRACING AFIB ON TELE. PT UPADLIB TO RESTROOM. PT DENIES ANY PAIN OR DISCOMFORT. PT ABLE TO SLEEP WELL ON BED. CALL LIGHT WITHIN REACH.
[2019-12-04 07:59] VITALS: BP 124/76
[2019-12-04 11:51] LABS: ABSOLUTE BASOPHILS 0.1 thou/uL (0.0-0.2); ABSOLUTE EOSINOPHILS 0.1 thou/uL (0.0-0.7); ABSOLUTE LYMPHOCYTES 3.1 thou/uL (0.8-5.3); ABSOLUTE MONOCYTES 1.2 thou/uL (0.0-1.2); ABSOLUTE NEUTROPHILS 11.4 thou/uL (1.6-8.1); BASOPHILS 0.4 %; EOSINOPHILS 0.3 %; HEMATOCRIT 32.5 % (37.0-47.0); HEMOGLOBIN 10.5 gm/dL (12.0-15.0); LYMPHOCYTES 19.6 %; MCH 25.5 pg (26.0-34.0); MCHC 32.4 g/dL (28.0-37.0); MCV 78.7 fL (80.0-100.0); MONOCYTES 7.4 %; MPV 8.3 fl. (7.2-11.1); NUCLEATED RBCS 0 /100WBC; PLATELET COUNT* 375 thou/uL (150-400); POLYS 72.3 %; RBC 4.13 mil/uL (4.20-5.00); RDW-CV 18.3 % (10.5-14.5); WBC 15.8 thou/uL (4.0-11.0)
[2019-12-04 11:57] LABS: CALCIUM 8.3 mg/dL (8.5-10.1); CREATININE 1.2 mg/dL (0.6-1.3); POTASSIUM 3.1 mmol/L (3.5-5.1)
[2019-12-04 12:02] VITALS: BP 128/68
[2019-12-04 16:00] VITALS: BP 107/53
--- NOTE | 2019-12-04 17:58 | NUR ---
PATINET RESTING IN BED. UP AD SHANNON IN ROOM. VSS AND PATINET IN NOAPPARENT SIGNS OF DISTRESS AT THIS TIME. SHE IS CURRENTLY UTILIZING 2 PER NASAL CANULA. HOURLY RPOUDNIGN COMPELTEDFOR PATINET SAFETY.
[2019-12-04 20:00] VITALS: BP 114/62
[2019-12-04 23:34] VITALS: BP 105/50
[2019-12-05 03:30] VITALS: BP 106/74
--- NOTE | 2019-12-05 06:03 | NUR ---
ASSUMED CARE OF PT AFTER REPORT AT 1930. PT A&OX4. VSS. PHYSICAL ASSESSMENT COMPLETED AND CHARTED. PT ON RA. PT TRACING AFIB ON TELE. PT UP ADLIB TO RESTROOM. PT DENIES ANY PAIN OR DISCOMFORT. PT POTASSIUM 3.1-DR SMITH MADE AWARE WITH NEW ORDER. PT ABLE TO SLEEP WLL ON BED. CALL LIGHT WITHIN REACH.
[2019-12-05 07:59] VITALS: BP 115/71
[2019-12-05] MEDS ORDERED: MULTAQ 400 MG400 MG PO (11:40)
[2019-12-05 12:00] VITALS: BP 101/43
[2019-12-05 21:06] LABS: MYCOPLASMA PNEUMONIA IgM <770 U/mL (0-769)
[2019-12-06 02:07] LABS: MYCOPLASMA PNEUMONIA IgG 608 U/mL (0-99)
[2019-12-09 09:11] LABS: ADENOVIRUS Negative (Negative); INFLUENZA A Negative (Negative); INFLUENZA B Negative (Negative); METAPNEUMOVIRUS Negative (Negative); PARAINFLUENZA 1 Negative (Negative); PARAINFLUENZA 2 Negative (Negative); PARAINFLUENZA 3 Negative (Negative); RHINOVIRUS Negative (Negative); RSV A Negative (Negative); RSV B Negative (Negative)
== END 2019-12-05 13:49 | disposition home or self-care (01) | DRG 291 ==
LOC: M.ERS 23:27 → M.TBA-ER 11-25 00:52 → M.2W 11-25 00:52
PROVIDERS: Family Medicine; Internal Medicine; Internal Medicine Cardiovascular Disease; Internal Medicine Pulmonary Disease; Personal Emergency Response Attendant; Specialist; ADMIT Internal Medicine
PROC: 5A09357 Assistance with Respiratory Ventilation, Less than 24 Consecutive Hours, Continuous Positive Airway Pressure (ICD-10-PCS; principal; 2019-11-25)
PROC: 5A09357 Assistance with Respiratory Ventilation, Less than 24 Consecutive Hours, Continuous Positive Airway Pressure (ICD-10-PCS; 2019-11-26)
PROC: 5A09357 Assistance with Respiratory Ventilation, Less than 24 Consecutive Hours, Continuous Positive Airway Pressure (ICD-10-PCS; 2019-11-27)
PROC: 5A09357 Assistance with Respiratory Ventilation, Less than 24 Consecutive Hours, Continuous Positive Airway Pressure (ICD-10-PCS; 2019-11-28)
PROC: 5A09357 Assistance with Respiratory Ventilation, Less than 24 Consecutive Hours, Continuous Positive Airway Pressure (ICD-10-PCS; 2019-11-29)
PROC: 5A09357 Assistance with Respiratory Ventilation, Less than 24 Consecutive Hours, Continuous Positive Airway Pressure (ICD-10-PCS; 2019-11-30)
PROC: 5A09357 Assistance with Respiratory Ventilation, Less than 24 Consecutive Hours, Continuous Positive Airway Pressure (ICD-10-PCS; 2019-12-01)
DX: I11.0 Hypertensive heart disease with heart failure (principal); J96.01 Acute respiratory failure with hypoxia; I50.31 Acute diastolic (congestive) heart failure; J44.1 Chronic obstructive pulmonary disease with (acute) exacerbation; I42.9 Cardiomyopathy, unspecified; J84.89 Other specified interstitial pulmonary diseases; I25.10 Atherosclerotic heart disease of native coronary artery without angina pectoris; E78.5 Hyperlipidemia, unspecified; D64.9 Anemia, unspecified; J44.9 Chronic obstructive pulmonary disease, unspecified; F17.210 Nicotine dependence, cigarettes, uncomplicated; I48.0 Paroxysmal atrial fibrillation; I34.0 Nonrheumatic mitral (valve) insufficiency; Z28.21 Immunization not carried out because of patient refusal; Z90.710 Acquired absence of both cervix and uterus; I25.2 Old myocardial infarction; Z95.5 Presence of coronary angioplasty implant and graft; Z79.899 Other long term (current) drug therapy

== ENCOUNTER → 2020-07-19 | Outpatient (CLI) | payer BC ==
[~2020-07-19] MED LIST changes: +AMIODARONE HCL400 MG PO; +AUGMENTIN 875-1 EACH PO; +CARDIZEM CD240 M1 PO; +COZAAR 25 MG TA25 M1 PO; +LEVO-T100 MCG PO; +MULTAQ 400 MG400 MG PO; +PREDNISONE 10 M10 MG PO; +PROTONIX40 M1 PO; +XARELTO20 MG PO
== END ==
LOC: M.ULTRA 10:30
PROVIDERS: ATTEND Family Medicine
DX: I71.4 Abdominal aortic aneurysm, without rupture (principal)

== ENCOUNTER → 2020-12-21 | Outpatient (CLI) | payer OTHER | LOC: M.RAD 14:47 | PROVIDERS: ATTEND Family Medicine | DX: E28.319 Asymptomatic premature menopause (principal); M85.88 Other specified disorders of bone density and structure, other site ==

== ENCOUNTER 2021-07-01 00:47 | Inpatient (IN) | payer OTHER ==
[~2021-07-01] VITALS: Ht 160 cm; Wt 87.4 kg
[2021-07-01] MEDS ORDERED: PACERONE200 MG PO (00:59)
[2021-07-01 01:25] LABS: HEMOGLOBIN 13.4 gm/dL (12.0-15.0); MCH 29.7 pg (26.0-34.0); MCV 93.1 fL (80.0-100.0); MPV 8.3 fl. (7.2-11.1); NUCLEATED RBCS 0 /100WBC; PLATELET COUNT* 320 thou/uL (150-400); RBC 4.52 mil/uL (4.20-5.00); RDW-CV 16.7 % (10.5-14.5); WBC 16.7 thou/uL (4.0-11.0)
[2021-07-01 01:26] LABS: CALCIUM 8.8 mg/dL (8.5-10.1); CREATININE 1.2 mg/dL (0.6-1.3); POTASSIUM 3.8 mmol/L (3.5-5.1)
[2021-07-01 01:37] LABS: ALBUMIN 3.6 g/dL (3.4-5.0); MAGNESIUM 2.1 mg/dL (1.8-2.4); TOTAL BILIRUBIN 0.8 mg/dL (<0.1-1.0)
[2021-07-01 01:59] LABS: BE -2.8 mmol/L (-2 to +3); PCO2 35.5 mmHg (35.0-45.0); PO2 69.6 mmHg (75.0-100.0); pH 7.398 (7.340-7.450)
[2021-07-01 02:22] LABS: ABSOLUTE EOSINOPHILS 0.3 thou/uL (0.0-0.7); ABSOLUTE MONOCYTES 0.3 thou/uL (0.0-1.2); PLATELET ESTIMATE ADEQUATE
[2021-07-01 04:00] VITALS: BP 112/74
--- NOTE | 2021-07-01 05:40 | NUR ---
RECEIVED PT FROM ED AT APPROX 0330. PT IS AWAKE AND ORIENTED X4. PT IS TRACING AFIB RATE CONTROLLED ON THE EDUCATION SALES CONSULTANT, PT DENIES CHEST PAIN/DISCOMFORT. PT IS ON 15L OF O2/HFNC,NO DESATURATIONS NOTED. PT IS PUT ON THE BIPAP AT 60L. ADMISSION ASSESSMENTS DONE AND CHARTED. PT IS ORIENTED TO THE USE OF CALL LIGHT AND ON ROOM SET UP. HOURLY ROUNDING DONE FOR PT SAFEATY. FALL PRECAUTIONS IN PLACE.
[2021-07-01 08:05] VITALS: BP 106/72
--- NOTE | 2021-07-01 10:15 | EKG ---
[place] [address] ELECTROCARDIOGRAM REPORT Name: HARRY GRISSOM Room: [address] ADM IN [facility].#: [id number] Admission: 07/01/21 Attend Phys: Aquiles Garcia Discharge: Date of : 65 Date of Service: 07/01/21 0104 Report #: [id number] THIS REPORT FOR: //name// [facility] ED Test Date: 2021-07-01 Test Time: 01:04:11 Pat Name: HARRY GRISSOM Department: Room: [facility] Gender: F Haulpak Driver: ANAIS : 1965 Requested By: Jeri Krishna Order Number: [id number] MD: Hermelindo Ross Measurements Intervals [place] Rate: 104 P: IN: QRS: 40 QRSD: 126 T: 104 QT: 382 QTc: 503 Interpretive Statements Atrial fibrillation Nonspecific intraventricular conduction delay Borderline repolarization abnormality Baseline wander in lead(s) I,aVR Compared to ECG 11/28/2019 09:43:48 rate has increased Electronically Signed On 07-01-2021 10:15:44 CDT by Hermelindo Ross [email or web address] <ELECTRONICALLY SIGNED> By: Hermelindo Ross MD, [facility] 07/01/21 1015 0104 0104 Hermelindo Ross MD, [facility] /EPI
--- NOTE | 2021-07-01 10:23 | NUR ---
CM ASSESSMENT: PT A&O, NORMALLY INDEPENDENT WITH ADL'S, ACTIVE AND WORKS OUTSIDE THE HOME. PT RESIDES AT HOME WITH HER MOTHER AND BROTHER. PT USES 0 DME. PT HAS 0 HX OF HH OR SNF. PT CURRENTLY ON 15L HF O2, AND DID NOT HAVE HOME OXYGEN PRIOR TO ADMIT. PT MAY NEED HOME OXYGEN AT D/C. NO OTHER CM D/C PLANNING NEEDS ANTICIPATED. CM WILL REMAIN AVAILABLE TO ASSIST AND FOLLOW NEEDED.
[2021-07-01 11:30] VITALS: BP 119/82
--- NOTE | 2021-07-01 15:48 | CON ---
[address] [address] CONSULTATION Name: HARRY GRISSOM Room: [address] IN M.R.#: [id number] Admission: 07/01/21 Attend Phys: Moe Stewart Discharge: Date of : 65 Report #: [id number] THIS REPORT FOR: cc: Omero Carreon MD, Jason MD Blick,Hermelindo Olea MD [facility] ~ DATE OF CONSULTATION: 07/01/2021 HISTORY OF PRESENT ILLNESS: The patient is a 55-year-old single white female who I was asked to see in the hospital today after she complained to being short of breath. The patient has an extensive past medical history. She had a cardiac catheterization in 2014 for chest pain. She was found to have a chronic occlusion of the right coronary artery. She had stenosis in the PTCA, was attempted in the LAD, and she had a dissection, she had a stent placed in the LAD, but occluded diagonal branch. She has a history of atrial fibrillation, was on amiodarone in the past. Last year because of shortness of breath, I switched her to Multaq. She developed persistent atrial fibrillation and the Multaq was discontinued. Echocardiogram in February of this year showed ejection fraction of 30%. She recently saw my nurse practitioner in May. The rate of her atrial fibrillation was increased. The dose of the metoprolol was increased. She was referred to Dr. Dangelo. He recommended starting back on amiodarone and plan to do an ablation this Thursday. However, the patient notes that for the past couple of days, she has had increasing shortness of breath. She has a chronic cough. She denies edema. She finally came to the Emergency Room last night, was admitted for further evaluation and treatment. PAST MEDICAL HISTORY: She has had a carpal tunnel surgery, hysterectomy, tonsillectomy. She has a history of hyperlipidemia. CURRENT MEDICATIONS: Consists of Lipitor, diltiazem, Synthroid, losartan, torsemide, Xarelto, and metoprolol. She was recently placed back on amiodarone. She uses an inhaler. ALLERGIES: She has no known drug allergies. FAMILY HISTORY: Negative for heart disease. SOCIAL HISTORY: She is single, never . She does have a child, lives with her mother in [place], [place]. Smokes half a pack of cigarettes a day. No alcohol abuse. REVIEW OF SYSTEMS: No history of stroke. She does have COPD. No history of liver disease, kidney disease, cancer, psychiatric illness, [place] [address] CONSULTATION Name: HARRY GRISSOM Room: [address] IN [facility].#: [id number] Admission: 07/01/21 Attend Phys: Moe Stewart Discharge: Date of : 65 Report #: [id number] PHYSICAL EXAMINATION: GENERAL: Revealed middle-aged female, appeared in no acute distress. VITAL SIGNS: Blood pressure is 110/70, pulse is 70, she is afebrile. HEENT: She was anicteric. Conjunctivae pink. Mucous membranes moist. NECK: Veins not distended. No carotid bruits. CHEST: Revealed late expiratory wheezes. HEART: Regular rate, irregular rhythm, no significant murmur. ABDOMEN: Soft. EXTREMITIES: Had no edema. Dorsalis pedis pulse, 2+ bilaterally. SKIN: Cool and dry. NEUROLOGIC: Nonfocal. ECG shows atrial fibrillation, controlled ventricular response rate. The patient had an echocardiogram in February that showed an ejection fraction of 30%, left atrial enlargement, moderate mitral regurgitation. Her workup in the Emergency Room last night, she had a portable chest x-ray that showed small effusion, pulmonary edema, cardiomegaly. LABORATORY WORK: Sodium 138, creatinine 1.2. High sensitivity troponin of 9. BNP 9093. Her white blood cell count 16.7, hemoglobin 13.4. IMPRESSION AND RECOMMENDATIONS: 1. Shortness of breath. Suspect secondary to chronic obstructive pulmonary disease. 2. Cardiomyopathy. I would give Lasix. The patient is currently on an ARB and a beta marlo. I would consider adding Aldactone. 3. Previous stenting. No recent angina. Since the patient is on Xarelto, I would not recommend aspirin. 4. Atrial fibrillation. The patient does not appear stable for radiofrequency ablation at this time. I am concerned that the amiodarone is worsening her lung disease. I would aim for rate control with diltiazem and beta marlo. I will continue the Xarelto. 5. Tobacco abuse. 6. History of abdominal aortic aneurysm. 7. Hyperlipidemia. The patient is on a statin drug. <ELECTRONICALLY SIGNED> By: Hermelindo Ross MD, [facility] 07/01/21 1548 0841 [id number] Lefty Ross MD, [facility] /nt
[2021-07-01 16:00] VITALS: BP 98/65
--- NOTE | 2021-07-01 16:50 | 2DMMODE ---
[place] [address] 2 D/M-MODE ECHOCARDIOGRAM Name: HARRY GRISSOM Melissa Room: [address] ADM IN [facility]#: [id number] Admission: 07/01/21 Attend Phys: Aquiles Garcia Discharge: Date of : 65 Date of Service: 07/01/21 1649 Report #: [id number] THIS REPORT FOR: cc: Omero Carreon MD, Jason MD Blick, David R. MD [facility] ~ APPROVED REPORT Study performed: 07/01/2021 15:48:49 EXAM: Limited 2D Echocardiogram Patient Location: In-Patient Room #: [facility] Status: routine BSA: 1.90 HR: 127 bpm BP: 119/82 mmHg Rhythm: Atrial Fibrillation Other Information Study Quality: Good Indications Atrial Fibrillation Dyspnea 2D Dimensions IVSd: 10.34 (7-11mm) LVDd: 61.83 mm PWd: 9.55 (7-11mm) LVDs: 51.34 (25-40mm) Volumes Left Atrial Volume (Systole) LA ESV Index: 61.10 mL/m2 Left Ventricle Left ventricle is moderately dilated. There is global hypokinesis of the left ventricle. There is normal left ventricular wall thickness. Left ventricular systolic function is moderate to severely decreased. LVEF is 20-25%. This study is not technically sufficient to allow evaluation of the LV diastolic function due to atrial fibrillation[place] [address] 2 D/M-MODE ECHOCARDIOGRAM Name: HARRY GRISSOM Room: [address] IN ..#: [id number] Admission: 07/01/21 Attend Phys: Aquiles Garcia Discharge: Date of : 65 Date of Service: 07/01/211648 Report #: [id number] The right ventricle is normal size. The right ventricular systolic function is normal. Atria Left atrium is severely dilated. Right atrium is mildly dilated. Aortic Valve The aortic valve is normal in structure. Mitral Valve The mitral valve is normal in structure. Tricuspid Valve The tricuspid valve is normal in structure. Pulmonic Valve The pulmonary valve is normal in structure. Great Vessels The aortic root is normal in size. IVC is dilated. Pericardium There is no pericardial effusion. <Conclusion> Left ventricle is moderately dilated. LVEF is 20-25%. Left atrium is severely dilated. <ELECTRONICALLY SIGNED> By: Hermelindo Ross MD, [facility] 07/01/219 48 1649 Hermelindo Ross MD, FACC /INF
--- NOTE | 2021-07-01 17:47 | NUR ---
PATIENT HAS REMAINED A&OX4, PLEASANT AND COOPERATIVE WITH CARES THIS SHIFT. MEDICATIONS ADMINISTERED ORDERED, WITH EXCEPTION OF P.M. DILTIAZEM AND METOPROLOL DUE TO BP OF 98/65. PATIENT UP AD SHANNON TO BS. PATIENT CURRENTLY WEARING 1L OF OXYGEN VIA NASAL CANNULA. NO C/O PAIN OR SOA THIS SHIFT. CALL LIGHT WITHIN REACH.
[2021-07-01 22:07] VITALS: BP 102/69
[2021-07-01 23:40] VITALS: BP 99/70
[2021-07-02 02:55] VITALS: BP 92/53
[2021-07-02 04:55] LABS: HEMATOCRIT 39.1 % (37.0-47.0); MCH 30.2 pg (26.0-34.0); MCHC 33.4 g/dL (28.0-37.0); MCV 90.5 fL (80.0-100.0); MPV 8.8 fl. (7.2-11.1); RBC 4.32 mil/uL (4.20-5.00); RDW-CV 16.4 % (10.5-14.5); WBC 14.5 thou/uL (4.0-11.0)
[2021-07-02 05:31] LABS: CALCIUM 8.9 mg/dL (8.5-10.1); CREATININE 1.4 mg/dL (0.6-1.3); POTASSIUM 3.9 mmol/L (3.5-5.1)
[2021-07-02 07:15] VITALS: BP 91/52
--- NOTE | 2021-07-02 07:27 | NUR ---
PT A&OX4, VSS ON 1L NC (O2 SAT 96% ON 1L, O2 DC'd, HOWEVER, AT 0600 PT WAS 88% ON ROOM AIR WHILE SLEEPING, PT PLACED BACK ON 1L O2 NC) UP AD SHANNON TO BSC. AFIB ON MONITOR. IV SALINE LOCKED. REPORT GIVEN AND CARE TRANSFERED TO DAY SHIFT NURSE AT APPROX 0615.
[2021-07-02 12:00] VITALS: BP 142/64
--- NOTE | 2021-07-02 14:33 | NUR ---
PLAN OF CARE: PHYSICIAN INFORMS OF PLAN FOR THE PT TO POSSIBLY D/C HOME TOMORROW WITH SELF-CARE. NO CM D/C PLANNING NEEDS ANTICIPATED. CM WILL REMAIN AVAILABLE TO ASSIST AND FOLLOW NEEDED.
[2021-07-02 16:00] VITALS: BP 114/73
--- NOTE | 2021-07-02 16:03 | NUR ---
PT REMAINED ALERT AND ORIENTED. PT RESTING IN BED AND UP IN ROOM. HEART MONITORED. FALL RISK PRECAUTIONS IN PLACE. HOURLY ROUNDING COMPELTED. CALL LIGHT WITHIN REACH.
[2021-07-02 19:30] VITALS: BP 138/65
[2021-07-03 00:39] VITALS: BP 101/57
[2021-07-03 04:19] VITALS: BP 113/68
[2021-07-03 05:20] LABS: HEMATOCRIT 44.2 % (37.0-47.0); HEMOGLOBIN 14.7 gm/dL (12.0-15.0); MCH 30.1 pg (26.0-34.0); MCHC 33.3 g/dL (28.0-37.0); MCV 90.6 fL (80.0-100.0); MPV 8.7 fl. (7.2-11.1); RBC 4.88 mil/uL (4.20-5.00); RDW-CV 16.5 % (10.5-14.5); WBC 12.7 thou/uL (4.0-11.0)
[2021-07-03 05:37] LABS: CALCIUM 9.1 mg/dL (8.5-10.1); CREATININE 1.7 mg/dL (0.6-1.3); POTASSIUM 3.9 mmol/L (3.5-5.1)
[2021-07-03 09:09] VITALS: BP 98/62
[2021-07-03] MEDS ORDERED: SPIRONOLACTONE25 MG PO (10:40)
[2021-07-03] MEDS ORDERED: LANOXIN125 MCG PO (10:40)
[2021-07-03] MEDS ORDERED: TORSEMIDE10 MG PO (10:40)
[2021-07-03] MEDS ORDERED: COZAAR 25 MG TA25 M2 PO (10:40)
[2021-07-03] MEDS ORDERED: DILTIAZEM 24HR300 M2 PO (10:40)
[2021-07-03 12:05] VITALS: BP 98/62
--- NOTE | 2021-07-03 12:35 | NUR ---
Reviewed discharge teaching with patient; verbalized understanding. Pt and mother in a hurry to leave. Pt states she will make follow-up appointment with cardiology when she gets home. IV and youth nutritional monitor dc'd. Discharged from unit with belongings per WC.
== END 2021-07-03 12:35 | disposition home or self-care (01) | DRG 291 ==
LOC: M.ERS 00:47 → M.2W 02:13 → M.TBA-ER 02:13 → M.2W 03:34
PROVIDERS: Emergency Medicine; Family Medicine; ADMIT Internal Medicine; ATTEND Internal Medicine
DX: I11.0 Hypertensive heart disease with heart failure (principal); J96.01 Acute respiratory failure with hypoxia; I48.20 Chronic atrial fibrillation, unspecified; J44.1 Chronic obstructive pulmonary disease with (acute) exacerbation; I50.41 Acute combined systolic (congestive) and diastolic (congestive) heart failure; E78.5 Hyperlipidemia, unspecified; E03.9 Hypothyroidism, unspecified; J44.9 Chronic obstructive pulmonary disease, unspecified; I25.10 Atherosclerotic heart disease of native coronary artery without angina pectoris; I25.5 Ischemic cardiomyopathy; Z20.822 Contact with and (suspected) exposure to COVID-19; I25.2 Old myocardial infarction; Z71.6 Tobacco abuse counseling; Z90.710 Acquired absence of both cervix and uterus

== ENCOUNTER → 2021-10-31 | Outpatient (CLI) | payer OTHER ==
[~2021-10-31] MED LIST changes: +ASPIRIN325 PO; +COZAAR 25 MG TA25 M2 PO; +DILTIAZEM 24HR300 M2 PO; +LANOXIN125 MCG PO; +PACERONE200 MG PO; +SPIRONOLACTONE25 MG PO; +TORSEMIDE10 MG PO
[2021-10-31 11:20] LABS: CALCIUM 9.1 mg/dL (8.5-10.1); CREATININE 1.2 mg/dL (0.6-1.3); POTASSIUM 4.6 mmol/L (3.5-5.1)
== END ==
LOC: M.LAB 10:20
PROVIDERS: ATTEND Registered Nurse
DX: I25.5 Ischemic cardiomyopathy (principal)